=== PATIENT | female | born 1960 | race Caucasian/White ===

== ENCOUNTER → 2019-06-10 08:49 | Outpatient (BNVA) | payer MEDICARE, MEDICAID, SELFPAY | PROVIDERS: Family Provider Family Medicine; PCP Family Medicine; Visit Provider Psychiatry & Neurology Psychiatry | DX: F33.42 Major depressive disorder, recurrent, in full remission (principal); F90.0 Attention-deficit hyperactivity disorder, predominantly inattentive type | CPT/HCPCS: 99213 ==

== ENCOUNTER → 2019-09-09 07:29 | Outpatient (BNVA) | payer MEDICARE, MEDICAID, SELFPAY | PROVIDERS: Family Provider Family Medicine; PCP Family Medicine; Visit Provider Psychiatry & Neurology Psychiatry | DX: F90.0 Attention-deficit hyperactivity disorder, predominantly inattentive type (principal); F33.42 Major depressive disorder, recurrent, in full remission | CPT/HCPCS: 99212 ==

== ENCOUNTER → 2019-09-15 08:31 | Outpatient (BNVA) | payer MEDICARE, MEDICAID, SELFPAY | PROVIDERS: Family Provider Family Medicine; PCP Family Medicine; Visit Provider Social Worker | DX: F90.0 Attention-deficit hyperactivity disorder, predominantly inattentive type (principal); F33.42 Major depressive disorder, recurrent, in full remission | CPT/HCPCS: 90834 ==

== ENCOUNTER → 2019-10-06 08:07 | Outpatient (BNVA) | payer MEDICARE, MEDICAID, SELFPAY | PROVIDERS: Family Provider Family Medicine; PCP Family Medicine; Visit Provider Social Worker | DX: F90.0 Attention-deficit hyperactivity disorder, predominantly inattentive type (principal); F33.42 Major depressive disorder, recurrent, in full remission | CPT/HCPCS: 90834 ==

== ENCOUNTER → 2019-10-07 10:47 | Outpatient (BNVA) | payer MEDICARE, MEDICAID, SELFPAY | PROVIDERS: Family Provider Family Medicine; PCP Family Medicine; Visit Provider Psychiatry & Neurology Psychiatry | DX: F33.42 Major depressive disorder, recurrent, in full remission (principal); F90.0 Attention-deficit hyperactivity disorder, predominantly inattentive type; F33.41 Major depressive disorder, recurrent, in partial remission | CPT/HCPCS: 99213 ==

== ENCOUNTER → 2019-10-20 07:52 | Outpatient (BNVA) | payer MEDICARE, MEDICAID, SELFPAY | PROVIDERS: Family Provider Family Medicine; PCP Family Medicine; Visit Provider Social Worker | DX: F33.42 Major depressive disorder, recurrent, in full remission (principal); F90.0 Attention-deficit hyperactivity disorder, predominantly inattentive type | CPT/HCPCS: 90832 ==

== ENCOUNTER → 2019-12-05 07:26 | Outpatient (BNVA) | payer MEDICARE, MEDICAID, SELFPAY | PROVIDERS: Family Provider Family Medicine; PCP Family Medicine; Visit Provider Psychiatry & Neurology Psychiatry | DX: F33.42 Major depressive disorder, recurrent, in full remission (principal); F90.0 Attention-deficit hyperactivity disorder, predominantly inattentive type | CPT/HCPCS: 99213 ==

== ENCOUNTER → 2019-12-25 08:31 | Outpatient (BNVA) | payer MEDICARE, MEDICAID, SELFPAY | PROVIDERS: Family Provider Family Medicine; PCP Family Medicine; Visit Provider Family Medicine | DX: I10 Essential (primary) hypertension (principal); E03.9 Hypothyroidism, unspecified; Z12.31 Encounter for screening mammogram for malignant neoplasm of breast; M19.041 Primary osteoarthritis, right hand; Z68.27 Body mass index [BMI] 27.0-27.9, adult | CPT/HCPCS: 80053; 80061; 84443; 85025; 87086 ==

== ENCOUNTER 2020-02-10 13:28 | Outpatient (CLI) | payer MEDICARE, MEDICAID, SELFPAY ==
--- NOTE | 2020-02-10 14:00 | MM_ITS ---
WS: [id number] BILATERAL DIGITAL SCREENING MAMMOGRAPHY WITH CAD CLINICAL INFORMATION: screening mammogram - not due until sept HISTORY: Screening mammogram. No current complaints. COMPARISON: TECHNIQUE: Bilateral CC and MLO views. FINDINGS: Scattered fibroglandular densities bilaterally. No suspicious focal mass, asymmetry, calcifications, or architectural distortion. No evidence of malignancy. A few tiny punctate calcifications. MM/[id number] IMPRESSION: BI-RADS: 2-Benign FOLLOW UP: 1 Year Follow-up Recommend return to annual screening mammography.
== END 2020-02-10 13:29 | disposition home or self-care (01) ==
LOC: RADSHAW 13:32
PROVIDERS: PCP Family Medicine; Visit Provider Family Medicine
DX: Z12.31 Encounter for screening mammogram for malignant neoplasm of breast (principal)
CPT/HCPCS: 77067

== ENCOUNTER → 2020-02-20 07:25 | Outpatient (BNVA) | payer MEDICARE, MEDICAID, SELFPAY | PROVIDERS: PCP Family Medicine; Visit Provider Psychiatry & Neurology Psychiatry | DX: F33.42 Major depressive disorder, recurrent, in full remission (principal); F90.0 Attention-deficit hyperactivity disorder, predominantly inattentive type | CPT/HCPCS: 99213 ==

== ENCOUNTER → 2020-03-05 07:33 | Outpatient (BNVA) | payer MEDICARE, MEDICAID, SELFPAY | PROVIDERS: PCP Family Medicine; Visit Provider Psychiatry & Neurology Psychiatry | DX: F90.0 Attention-deficit hyperactivity disorder, predominantly inattentive type (principal); F32.4 Major depressive disorder, single episode, in partial remission | CPT/HCPCS: 99214 ==

== ENCOUNTER → 2020-04-06 07:33 | Outpatient (BNVA) | payer MEDICARE, MEDICAID, SELFPAY | PROVIDERS: PCP Family Medicine; Visit Provider Psychiatry & Neurology Psychiatry | DX: F33.42 Major depressive disorder, recurrent, in full remission (principal); F90.0 Attention-deficit hyperactivity disorder, predominantly inattentive type | CPT/HCPCS: 99213 ==

== ENCOUNTER 2020-04-16 14:48 | Outpatient (CLI) | payer MEDICARE, MEDICAID, SELFPAY ==
--- NOTE | 2020-04-16 15:04 | XR_ITS ---
WS: [id number] PROCEDURE: XR chest 2V* [id number] CLINICAL INFORMATION: ALLERGIC RHINITIS DUE TO POLLEN COMPARISON: FINDINGS: Heart: Normal cardiac silhouette. Lungs: Mild chronic emphysematous changes. No acute pulmonary infiltrates. No focal pneumonia or pleu ral fluid. Bones: Mild thoracic curve convex right. Cholecystectomy clips. XR/XR chest 2V* [id number] IMPRESSION: 1. Mild chronic emphysematous changes. No acute pulmonary infiltrates. 2. No acute chest findings.
== END 2020-04-16 14:49 | disposition home or self-care (01) ==
PROVIDERS: PCP Family Medicine; Visit Provider Specialist
DX: J30.1 Allergic rhinitis due to pollen (principal)
CPT/HCPCS: 71046

== ENCOUNTER → 2020-06-01 07:26 | Outpatient (BNVA) | payer MEDICARE, MEDICAID, SELFPAY | PROVIDERS: PCP Family Medicine; Visit Provider Psychiatry & Neurology Psychiatry | DX: F33.42 Major depressive disorder, recurrent, in full remission (principal); F90.0 Attention-deficit hyperactivity disorder, predominantly inattentive type | CPT/HCPCS: 99213 ==

== ENCOUNTER → 2020-07-06 10:38 | Outpatient (BNVA) | payer MEDICARE, MEDICAID, SELFPAY | PROVIDERS: PCP Family Medicine; Visit Provider Family Medicine | DX: E03.9 Hypothyroidism, unspecified (principal) | CPT/HCPCS: 84443 ==

== ENCOUNTER → 2020-07-27 07:27 | Outpatient (BNVA) | payer MEDICARE, MEDICAID, SELFPAY | PROVIDERS: PCP Family Medicine; Visit Provider Psychiatry & Neurology Psychiatry | DX: F33.42 Major depressive disorder, recurrent, in full remission (principal); F90.0 Attention-deficit hyperactivity disorder, predominantly inattentive type | CPT/HCPCS: 99214 ==

== ENCOUNTER → 2020-09-21 07:56 | Outpatient (BNVA) | payer MEDICARE, MEDICAID, SELFPAY | PROVIDERS: PCP Family Medicine; Visit Provider Psychiatry & Neurology Psychiatry | DX: F33.42 Major depressive disorder, recurrent, in full remission (principal); F90.0 Attention-deficit hyperactivity disorder, predominantly inattentive type | CPT/HCPCS: 99214 ==

== ENCOUNTER → 2020-11-23 08:41 | Outpatient (BNVA) | payer MEDICARE, MEDICAID, SELFPAY | PROVIDERS: PCP Family Medicine; Visit Provider Psychiatry & Neurology Psychiatry | DX: F33.42 Major depressive disorder, recurrent, in full remission (principal); F90.0 Attention-deficit hyperactivity disorder, predominantly inattentive type | CPT/HCPCS: 99214 ==

== ENCOUNTER → 2020-12-08 08:22 | Outpatient (BNVA) | payer MEDICARE, MEDICAID, SELFPAY | PROVIDERS: PCP Family Medicine; Referring Provider Family Medicine; Visit Provider Specialist | DX: M67.442 Ganglion, left hand (principal) | CPT/HCPCS: 73130 ==

== ENCOUNTER 2020-12-10 13:22 | Outpatient (CLI) | payer MEDICARE, MEDICAID, SELFPAY ==
--- NOTE | 2020-12-10 13:45 | MR_ITS ---
WS: [id number] MRI LEFT HAND without CONTRAST. COMPARISON: None Multiplanar, multisequence imaging is performed without contrast. Comparison: 12/09/2019. Ovoid soft tissue mass along the dorsal surface of the hand at the level of the proximal metacarpals. Mass is predominantly centered over the proximal third metacarpal and follows fluid signal on all se quences. This nodule measures 8 x 3 mm. Very closely associated with the extensor indices tendon. No marrow edema within the bone. No soft tissue or muscle atrophy identified. Small subchondral cyst in the proximal fourth metacarpal. MR/MR hand LT wo con* [id number] IMPRESSION: 1. Soft tissue nodule follows fluid on all sequences measures 8 x 3 mm on the dorsal surface of the hand at the level of the proximal third metacarpal. Proba michelle representing a ganglion associated with the extensor indices tendon. 2. No additional masses.
== END 2020-12-10 13:23 | disposition home or self-care (01) ==
LOC: RADSHAW 13:29
PROVIDERS: PCP Family Medicine; Visit Provider Specialist
DX: R22.32 Localized swelling, mass and lump, left upper limb (principal)
CPT/HCPCS: 73218

== ENCOUNTER → 2020-12-27 10:57 | Outpatient (BNVA) | payer MEDICARE, MEDICAID, SELFPAY | PROVIDERS: PCP Family Medicine; Visit Provider Specialist | DX: Z01.812 Encounter for preprocedural laboratory examination (principal); Z20.822 Contact with and (suspected) exposure to COVID-19 | CPT/HCPCS: 87635 ==

== ENCOUNTER 2020-12-31 05:46 | Day surgery (SDC) | payer MEDICARE, MEDICAID, SELFPAY ==
[2020-12-30 10:12] VITALS: BMI 26.2
--- NOTE | 2020-12-30 10:43 | ANES.PREANE2 ---
Pre-Anesthetic Assessment Pre-Anesthetic Assessment: Height/Weight: Height 1.6 m Weight 67.132 kg Preop Diagnosis: Ganglion cyst of tendon sheath left hand Proposed Procedure: Operation Date: 12/31/20 07:00 Proposed Procedures p Excision Of Ganglion Cyst left hand 2511(Left) - Evelin Galicia MD Was Beta Venita taken within 24 hours: N/A Was Clonidine taken within 24 hours: N/A Social: Social History: No alcohol and No tobacco Exam: Pre-Anes Outpt Exam: alert, oriented x 3, clear to auscultation bilaterally and regular rate & rhythm Airway: Submandibular: WNL Cervical ROM: WNL MP: 2 Dentition: False Pulmonary: Pulmonary: Asthma CV/HEM: CV/HEM: HTN Metabolic: Metabolic: Thyroid Neuropsych: Neuropsych: Anxiety and Depression Anesthetic Plan: ASA status: 2 Anesthesia: MAC and Regional (specify below) (Garrett davila) Risk of > 500 ml blood loss (7ml/kg in children): No PFSH Anesthesia PFSH: Medical History Attention-deficit hyperactivity disorder, predominantly inattentive type Enrolled in chronic care management Essential hypertension GERD (gastroesophageal reflux disease) Hypothyroid Surgical History H/O: hysterectomy History of cholecystectomy History of nasal surgery Family History Other Hypertension Psychiatric illness Social History Alcohol intake: never Data Anesthesia CBC & Chem 7: 12/30/20 10:25 12/30/20 10:25 Cardiac Studies: No Data to Display
[2020-12-30 10:56] LABS: Basophils # 0.1 10^3/uL (0.0-0.1); Basophils % 1.2 %; Eosinophils # 2.1 10^3/uL (0.0-0.8); Eosinophils % 22.4 %; Hematocrit 42.8 % (37.0-47.0); Hemoglobin 13.7 g/dL (11.5-15.3); Lymphocytes # 2.5 10^3/uL (0.8-4.8); Lymphocytes % 27.4 %; Mean Corpuscular Hemoglobin 28.4 pg (28.0-34.0); Mean Corpuscular Volume 88.8 fl (81-99); Mean Platelet Volume 11.5 fL (7.4-10.4); Monocytes # 0.6 10^3/uL (0.2-0.9); Monocytes % 6.9 %; Neutrophils # 3.83 10^3/uL (1.8-7.7); Neutrophils % 41.6 %; Nucleated Red Blood Cells % 0 %; Platelet Count 253 10^3/cmm (130-400); Red Blood Count 4.82 10^6/uL (4.1-5.3); Red Cell Distribution Width 13.4 % (12.1-15.1); White Blood Count 9.2 10^3/uL (4.0-10.0)
[2020-12-30 11:18] LABS: Blood Urea Nitrogen 8 mg/dL (6-20); Calcium 9.1 mg/dL (8.5-10.5); Carbon Dioxide 28 mmol/L (22-29); Chloride 101 mmol/L (98-107); Glomerular Filtration Rate 126.7 mL/min (90-130); Glucose 95 mg/dL (65-115); Osmolality Calculated 282 mOsm/kg (285-295); Sodium 137 mmol/L (136-145)
[2020-12-30 11:19] LABS: Anion Gap 12.1 (5-19); Potassium 4.1 mmol/L (3.5-5.1)
[2020-12-31] VITALS (7 sets, daily range): BP systolic 138–165; BP diastolic 85–98; PULSE 71–96; RESP 13–19; TEMP 36.2–36.8; O2SAT 95–99
[2020-12-31] MEDS: acetaminophen 1,000 MG/100 ML PIGGYBACK 400 MG IV (06:29)
[2020-12-31] MEDS: sodium chloride 0.9% 1,000 ML 30 ML IV (06:30)
[2020-12-31] MEDS: vancomycin 1,000 MG in sodium chloride 0.9% 250 ML 250 MG IV (06:37)
--- NOTE | 2020-12-31 06:50 | ANES.PAUD2 ---
Pre-Anesthetic Update Pre-Anesthetic Assessment: Date of Surgery/Procedure: 12/31/20 Preop Diagnosis: Ganglion cyst of tendon sheath left hand Proposed Procedure: Operation Date: 12/31/20 07:00 Proposed Procedures p Excision Of Ganglion Cyst left hand 2511(Left) - Evelin Galicia MD Any changes to Pre-Anesthetic Assessment?: No Last Intake: Intake Last Liquid Date 12/30/20 Last Liquid Time 21:00 Last Solid Date 12/30/20 Last Solid Time 21:00 Labs Last 48hrs: Laboratory Results - last 48 hr 12/30/20 12/30/20 10:25 10:25 WBC 9.2 RBC 4.82 Hgb 13.7 Hct 42.8 MCV 88.8 MCH 28.4 MCHC 32.0 RDW 13.4 Plt Count 253 MPV 11.5 H Neut % (Auto) 41.6 Lymph % (Auto) 27.4 [place] % (Auto) 6.9 Eos % (Auto) 22.4 Baso % (Auto) 1.2 Neut # (Auto) 3.83 Lymph # (Auto) 2.5 [place] # (Auto) 0.6 Eos # (Auto) 2.1 H Baso # (Auto) 0.1 Nucleated RBC % (a uto) 0 Nucleated RBCs # 0.0 Sodium 137 Potassium 4.1 Chloride 101 Carbon Dioxide 28 Anion Gap 12.1 BUN 8 Creatinine 0.5 GFR Calculation 126.7 Glucose 95 Calculated Osmolal ity 282 L Calcium 9.1 Vitals: Temperature 98.2 F 12/31/20 06:13 Temperature Source Temporal Artery S can 12/31/20 06:13 Pulse Rate 73 12/31/20 06:13 Respiratory Rate 18 12/31/20 06:13 Blood Pressure 157/89 12/31/20 06:13 Blood Pressure Amber n 111 12/31/20 06:13 Pulse Oximetry 98 12/31/20 06:13 Oxygen Delivery Me thod 12/31/20 06:13 Exam: Pre-Anes Outpt Exam: alert, oriented x 3, clear to auscultation bilaterally and regular rate & rhythm Cardiac Studies: No Data to Display
--- NOTE | 2020-12-31 06:54 | P.HPUD_ITS ---
Surgery/Procedure H&P Update DATE OF PROCEDURE: December 31, 2020 DATE H&P PERFORMED: 12/15/20 H&P UPDATE INFORMATION: I have reviewed H&P completed within last 30 days, I have examined patient prior to procedure, No changes to prior documentation and H&P is in [facility] EMR on date indicated PREOP DIAGNOSIS: Ganglion cyst of tendon sheath left hand PLANNED PROCEDURE: Operation Date: 12/31/20 07:00 Proposed Procedures p Excision Of Ganglion Cyst left hand 6432(Left) - Evelin Galicia MD Related Problem List Diagnoses (1) Ganglion cyst of tendon sheath of left hand:
--- NOTE | 2020-12-31 08:39 | PM.OP ---
Operative Report Date of procedure: December 31, 2020 Pre-op Diagnosis: Ganglion cyst of tendon sheath left hand Post-op Diagnosis: Ganglion cyst dorsum of left wrist Procedure Done: Excision ganglion cyst dorsum of left wrist Pathology: none sent Surgeon: Evelin Galicia Intermediate Teacher: None Anesthesia: General Estimated blood loss (mL): 2 Tourniquet time (min): 27 Tourniquet time: At 250 mmHg IV fluids (mL): 500 Urine output (mL): 0 Urine output: No Anderson Complications: None Findings: Ganglion cyst from the dorsum of the carpus without discrete cystic wall. Condition: stable Disposition: PACU (Then to same-day surgery for discharge to home) Brief History: This 60-year-old woman presented with complaints of a mass on the dorsum of her left wrist. She had an MRI evaluation preoperatively. The ganglion cyst was somewhat mobile, but it did not move with the extensor to the index finger. It did move with flexion and extension of all tendons, however. After evaluation and discussion in the office, the patient did wish to proceed with operative intervention for ganglion cyst removal. Risks and complications were discussed with her, and consents were signed. Procedure: The patient was brought to the operating theater. The patient had a Pearl block with MAC attempted, secondary to venous access issues, she was converted to a general anesthetic. The tourniquet was elevated to 250 mmHg for a total tourniquet time of 27 minutes. The patient was also given vancomycin 1 g preoperatively. The arm was then prepped and draped with DuraPrep in usual fashion with the arm draped free. A surgical pause was performed. At the time, the surgical pause, we confirmed the site and side of surgery. We also confirmed the patient's identity, appropriate and timely administration of preoperative antibiotics and preoperative surgical markings. Prior to surgical incision, the arm was exsanguinated and the tourniquet was elevated. The ganglion was palpated on the dorsum of the wrist, and a transverse incision was made centered over it. Dissection gently continued down through skin and subcutaneous tissues. Care was taken to avoid injury to the extensor tendons. Tenotomy scissors were used to enter the area of the ganglion cyst. Care was again taken to avoid injury to neurovascular structures as well as to the tendon. The ganglion cyst was noted to be an outpocketing from the underlying joint, and there was minimal cyst wall. The fluid which exuded from the area was indeed ganglion cyst fluid. The area was debrided with a rongeur. It was palpated to determine any further issues with ganglion cyst. 3-0 PDS suture was used to close the capsule over the area of the outpocketing for the ganglion cyst. Irrigation was accomplished prior to this closure. Further closure was accomplished with 3-0 Monocryl in the subcutaneous tissues and 4-0 Monocryl placed in a running subcuticular fashion. This was followed by injection of local anesthetic, placement of Dermabond, and Steri-Strips. Sterile dressing was then placed consisting of OpSite, fluffed fluffs, sterile soft roll, and an Magdiel wrap. The tourniquet was released after 27 minutes. There were no complications. There were no specimens. The procedure was well tolerated. Plan is the patient will be discharged home. Associated Problem List Diagnoses (1) Ganglion cyst of dorsum of left wrist:
--- NOTE | 2020-12-31 15:40 | ANE.PACU2 ---
Inpatient post-anesthesia follow up: Airway intact: Yes Vital signs: Temperature 98 F Pulse Rate 71 Respiratory Rate 16 Blood Pressure 154/97 Pulse Oximetry 98 Oxygen Delivery Me thod Room Air Oxygen Flow Rate 6 Fraction of Inspir ed Oxygen Hydration adequate: Yes Nausea and vomiting: No Pain level: 1 Mental status: Baseline
== END 2020-12-31 09:05 | disposition home or self-care (01) ==
PROVIDERS: PCP Family Medicine; Visit Provider Specialist
PROC: (CPT 25111; principal; 2020-12-31 07:00)
DX: M67.432 Ganglion, left wrist (principal); J45.909 Unspecified asthma, uncomplicated; I10 Essential (primary) hypertension; K21.9 Gastro-esophageal reflux disease without esophagitis; E03.9 Hypothyroidism, unspecified
CPT/HCPCS: 25111; 36415; 80048; 85025; 96365; J2704; J3010; J3370; J3490; J7030; J7050

== ENCOUNTER → 2021-01-11 10:06 | Outpatient (BNVA) | payer MEDICARE, MEDICAID, SELFPAY | PROVIDERS: PCP Family Medicine; Visit Provider Nurse Practitioner Family | DX: Z20.822 Contact with and (suspected) exposure to COVID-19 (principal); J06.9 Acute upper respiratory infection, unspecified | CPT/HCPCS: 87426 ==

== ENCOUNTER → 2021-01-19 10:29 | Outpatient (BNVA) | payer MEDICARE, MEDICAID, SELFPAY | PROVIDERS: PCP Family Medicine; Visit Provider Specialist | DX: M19.042 Primary osteoarthritis, left hand (principal); R22.32 Localized swelling, mass and lump, left upper limb | CPT/HCPCS: 73130 ==

== ENCOUNTER → 2021-02-03 14:42 | Outpatient (BNVA) | payer MEDICARE, MEDICAID, SELFPAY | PROVIDERS: PCP Family Medicine; Visit Provider Registered Nurse Neonatal Intensive Care | DX: M79.672 Pain in left foot (principal) | CPT/HCPCS: 73630 ==

== ENCOUNTER → 2021-02-28 16:51 | Outpatient (BNVA) | payer MEDICARE, MEDICAID, SELFPAY | PROVIDERS: PCP Family Medicine; Visit Provider Nurse Practitioner | DX: S69.90XA Unspecified injury of unspecified wrist, hand and finger(s), initial encounter (principal); X58.XXXA Exposure to other specified factors, initial encounter | CPT/HCPCS: 73110 ==

== ENCOUNTER → 2021-03-08 08:51 | Outpatient (BNVA) | payer MEDICARE, MEDICAID, SELFPAY | PROVIDERS: PCP Family Medicine; Visit Provider Psychiatry & Neurology Psychiatry | DX: F33.42 Major depressive disorder, recurrent, in full remission (principal); F90.0 Attention-deficit hyperactivity disorder, predominantly inattentive type | CPT/HCPCS: 99213 ==

== ENCOUNTER 2021-04-12 09:55 | Outpatient (CLI) | payer MEDICARE, MEDICAID, SELFPAY ==
--- NOTE | 2021-04-12 10:00 | MM_ITS ---
WS: [id number] Exam: [place] [id number] Date/Time of Exam: 04/12/2021 10:17 AM Reason For Exam: SCREENING VIEWS: MLO and CC views both breasts. Comparison made with prior exam of 11/27/2016, 11/30/2017, 01/10/2019 and 02/10/2020. Findings: There was no sign of mass, architectural distortion or suspicious calcification in either breast. Fa tty MM/[place] [id number] Impression: BI-RADS: 2-Benign FOLLOW-UP: 1 Year Follow-up This mammogram was also analyzed by the Computer Aided Detection System R2 Imag e Receptionist Clerk.
== END 2021-04-12 09:56 | disposition home or self-care (01) ==
LOC: RADSHAW 09:58
PROVIDERS: PCP Family Medicine; Visit Provider Family Medicine
DX: Z12.31 Encounter for screening mammogram for malignant neoplasm of breast (principal)
CPT/HCPCS: 77067

== ENCOUNTER → 2021-05-04 14:05 | Outpatient (BNVA) | payer MEDICARE, MEDICAID, SELFPAY | PROVIDERS: PCP Family Medicine; Visit Provider Nurse Practitioner Family | DX: Z20.822 Contact with and (suspected) exposure to COVID-19 (principal) | CPT/HCPCS: 87426; 87635 ==

== ENCOUNTER → 2021-05-20 08:20 | Outpatient (BNVA) | payer MEDICARE, MEDICAID, SELFPAY | PROVIDERS: PCP Family Medicine; Visit Provider Family Medicine | DX: I10 Essential (primary) hypertension (principal); E03.9 Hypothyroidism, unspecified; B37.0 Candidal stomatitis; J45.42 Moderate persistent asthma with status asthmaticus; M25.562 Pain in left knee | CPT/HCPCS: 80061; 84443 ==

== ENCOUNTER → 2021-05-31 09:40 | Outpatient (BNVA) | payer MEDICARE, MEDICAID, SELFPAY | PROVIDERS: PCP Family Medicine; Visit Provider Psychiatry & Neurology Psychiatry | DX: F33.42 Major depressive disorder, recurrent, in full remission (principal); F90.0 Attention-deficit hyperactivity disorder, predominantly inattentive type; E03.9 Hypothyroidism, unspecified | CPT/HCPCS: 99214 ==

== ENCOUNTER → 2021-07-13 14:53 | Outpatient (BNVA) | payer MEDICARE, MEDICAID, SELFPAY | PROVIDERS: PCP Family Medicine; Visit Provider Family Medicine | DX: E03.9 Hypothyroidism, unspecified (principal) | CPT/HCPCS: 84443 ==

== ENCOUNTER → 2021-08-23 10:02 | Outpatient (BNVA) | payer MEDICARE, MEDICAID, SELFPAY | PROVIDERS: PCP Family Medicine; Visit Provider Psychiatry & Neurology Psychiatry | DX: F33.42 Major depressive disorder, recurrent, in full remission (principal); F90.0 Attention-deficit hyperactivity disorder, predominantly inattentive type | CPT/HCPCS: 99214 ==

== ENCOUNTER 2021-10-04 14:47 | Emergency (ER) | payer MEDICARE, MEDICAID, SELFPAY ==
--- NOTE | 2021-10-04 15:08 | XR_ITS ---
WS: [id number] Right wrist, 3 views, 10/04/2021 Clinical Data: fall Comparison: None. Findings: There is a comminuted impacted dorsally displaced fracture of the distal right radius. There is a simple fracture of the right ulnar styloid. The carpal bones are intact. There is soft tis hattie swelling about the fracture. XR/XR wrist RT min 3V* [id number] Impression: Distal right radial fracture and right ulnar styloid fracture.
[2021-10-04 15:31] VITALS: BP 127/83; PULSE 93; RESP 18; TEMP 36.8; O2SAT 99; BMI 27.6
--- NOTE | 2021-10-04 15:41 | ED_ITS ---
Documented by User: GAGAN Vieira 10/04/21 16:11 HPI - Extremity Injury (Upper) General: Chief Complaint: Extremity Injury, Upper Stated Complaint: Left wrist injury, Fell Time Seen by Provider: 10/04/21 15:37 Source: patient Mode of arrival: ambulatory Limitations: no limitations History of Present Illness: Patient is a nice 61-year-old female presents to ED today for evaluation of a right wrist injury that she sustained just prior to arrival after she was walking in a parking lot and stepped in a pothole. She has no other injuries or complaints at this time. complaint: injury to: right and wrist Onset (ago): hour(s) Other injuries: none Place: outdoors Severity: severe Relieving factors: immobilization Exacerbating factors: movement of extremity Context: fall Associated symptoms: Reports no associated symptoms; Denies neck pain Review of Systems Musc: Reports: joint pain (R wrist) and joint swelling (R wrist); Denies: neck pain, back pain, extremity pain or extremity swelling Neuro: Denies: numbness in extremities or sensory changes PFSH ED PFSH: Medical History Attention-deficit hyperactivity disorder, predominantly inattentive type Enrolled in chronic care management Essential hypertension GERD (gastroesophageal reflux disease) Hypothyroid Psychiatric care Surgical History H/O: hysterectomy History of cholecystectomy History of nasal surgery Family History Other Hypertension Psychiatric illness Social History Smoking and tobacco status: former smoker Alcohol intake: never Physical Exam Const: COMMON NORMALS: no acute distress, patient oriented x3, no limitations and alert Neck/C-Spine: CERVICAL SPINE: No pain with cervical ROM and No Cervical spine tenderness Back/Pelvis: COMMON NORMALS: thoracic and lumbar spine normal to inspection, no thoracic nor lumbar tenderness and thoraco-lumbar ROM normal Extremity: COMMON NORMALS: capillary refill normal GENERAL: Yes normal exam except as noted RIGHT UPPER EXTREMITY: Yes wrist (TTP/swelling/deformity distal R wrist consistent with fracture) Right wrist: Yes neurovascular exam (normal) Neuro: COMMON NORMALS: patient oriented x3, moves all extremities, no focal motor deficits and no sensory deficits noted SENSORIUM/ORIENTATION: Yes alert Skin: TRAUMA: no lacerations or abrasions Course Vital Signs: Vital signs: Vital Signs Temperature 98.2 F 10/04/21 15:31 Pulse Rate 93 10/04/21 15:31 Respiratory Rate 18 10/04/21 15:31 Blood Pressure 127/83 10/04/21 15:31 Pulse Oximetry 99 10/04/21 15:31 MDM - Extremity Injury (Upper) Medical Decision Making Personal interpretation of right wrist XR shows an impacted comminuted distal r ight radial fracture with a small ulnar styloid fracture. NV intact. Patient will be placed in a splint/sling and will have her follow-up with orthopedics. She is requesting only Tylenol #3 for discomfort stating she does not like stronger pain medications. XRs reviewed with Dr. Valdez who agrees with plan for patient. Lab Data Radiology Impressions Wrist X-Ray 10/04/21 15:08 Impression: Distal right radial fracture and right ulnar styloid fracture. Discharge Plan Discharge Patient Disposition: Home Clinical Impression: Closed fracture of distal end of right radius Qualifiers: Encounter type: initial encounter Fracture morphology: other fracture Qualified Code(s): S52.591A - Other fractures of lower end of right radius, initial encounter for closed fracture Fracture of right ulnar styloid Qualifiers: Encounter type: initial encounter Fracture type: closed Fracture alignment: nondisplaced Qualified Code(s): S52.614A - Nondisplaced fracture of right ulna styloid process, initial encounter for closed fracture Condition: Stable Prescriptions: New acetaminophen-codeine 300-30 mg tablet 1 tab PO Q4H PRN (Reason: pain) Qty: 20 0RF No Action multivitamin Tablet 1 tab PO QAM 0RF Dupixent Syringe 300 mg/2 mL syringe 300 mg SUBCUT .every 2 weeks 0RF Xhance 93 mcg/actuation aerosol breath activated 1 spray intranasal BID 0RF Rx Instructions: into each nostril albuterol sulfate 2.5 mg /3 mL (0.083 %) solution for nebulization 2.5 mg inhalation QID PRN (Reason: shortness of breath or wheezing) Qty: 75 1RF lisinopril 10 mg tablet 10 mg PO DAILY 90 Days Qty: 90 1RF dextromethorphan HBr 5 mg/5 mL syrup 5 mg PO Q6H PRN (Reason: cough) Qty: 354 0RF clonazepam [Klonopin] 0.5 mg tablet 0.25 mg PO BID Qty: 60 5RF atomoxetine 40 mg capsule 40 mg PO BID Qty: 60 11RF sertraline [Zoloft] 50 mg tablet 50 mg PO DAILY Qty: 30 11RF zolpidem [Ambien] 10 mg tablet 10 mg PO BEDTIME Qty: 30 5RF levocetirizine 5 mg tablet 5 mg PO DAILY 0RF albuterol sulfate [Ventolin HFA] 90 mcg/actuation HFA aerosol inhaler 2 puff INHALATION Q6H PRN (Reason: shortness of breath or wheezing) Qty: 18 2RF ezetimibe [Zetia] 10 mg tablet 10 mg PO DAILY 90 Days Qty: 90 1RF Dexilant 60 mg capsule,biphase delayed releas See Rx Instructions .ROUTE .COMPLEX Qty: 90 0RF Dose Instruction: TAKE 1 CAPSULE BY MOUTH EVERY DAY Rx Instructions: TAKE 1 CAPSULE BY MOUTH EVERY DAY Symbicort 160-4.5 mcg/actuation HFA aerosol inhaler 2 puff INHALATION Q12H Qty: 10.2 2RF levothyroxine 100 mcg tablet 100 mcg PO DAILY 60 Days Qty: 60 0RF Rx Instructions: needs a lab before refills gabapentin 300 mg capsule 300 mg PO DAILY Qty: 30 3RF levothyroxine 88 mcg tablet See Rx Instructions .ROUTE .COMPLEX Qty: 30 2RF Dose Instruction: TAKE 1 TABLET BY MOUTH 4 DAYS PER WEEK Rx Instructions: TAKE 1 TABLET BY MOUTH 4 DAYS PER WEEK Discharge Orders: Discharge ED (Routine); Ordered 10/04/21 Ordered By: Ivonne Michaels Referrals: Lily Medina DO [Primary Care Provider] - Patient Instructions: Wrist Fracture in Adults (ED), ORIF of a Wrist Fracture (DC) Activity Restrictions/Additional Instructions: As we discussed case management should contact you shortly to set you up with your follow-up orthopedic appointment. You need to stay in your splint until this appointment. Return to the emergency department for numbness, tingling, loss of sensation, or coolness/pallor to the extremity/hand. Coding Level of Care Code ED Sap Portal Architect for Chg Fwd Exam Detailed Documented by User: Josse Valdez DO 10/05/21 06:52 HPI - Extremity Injury (Upper) General: Chief Complaint: Extremity Injury, Upper Stated Complaint: Left wrist injury, Fell Time Seen by Provider: 10/04/21 15:37 PFSH ED PFSH: Medical History Attention-deficit hyperactivity disorder, predominantly inattentive type Enrolled in chronic care management Essential hypertension GERD (gastroesophageal reflux disease) Hypothyroid Psychiatric care Surgical History H/O: hysterectomy History of cholecystectomy History of nasal surgery Family History Other Hypertension Psychiatric illness Social History Smoking and tobacco status: former smoker Alcohol intake: never Course Vital Signs: Vital signs: Vital Signs Temperature 98.2 F 10/04/21 15:31 Pulse Rate 93 10/04/21 15:31 Respiratory Rate 18 10/04/21 15:31 Blood Pressure 127/83 10/04/21 15:31 Pulse Oximetry 99 10/04/21 15:31 MDM - Extremity Injury (Upper) Medical Decision Making Personal interpretation of right wrist XR shows an impacted comminuted distal right radial fracture with a small ulnar styloid fracture. NV intact. Patient will be placed in a splint/sling and will have her follow-up with orthopedics. She is requesting only Tylenol #3 for discomfort stating she does not like stronger pain medications. XRs reviewed with Dr. Valdez who agrees with plan for patient. Chart reviewed and patient discussed with midlevel. Agree with assessment and plan. Lab Data Radiology Impressions Wrist X-Ray 10/04/21 15:08 Impression: Distal right radial fracture and right ulnar styloid fracture. Discharge Plan Discharge Patient Disposition: Home Clinical Impression: Closed fracture of distal end of right radius Qualifiers: Encounter type: initial encounter Fracture morphology: other fracture Qualified Code(s): S52.591A - Other fractures of lower end of right radius, initial encounter for closed fracture Fracture of right ulnar styloid Qualifiers: Encounter type: initial encounter Fracture type: closed Fracture alignment: nondisplaced Qualified Code(s): S52.614A - Nondisplaced fracture of right ulna styloid process, initial encounter for closed fracture Condition: Stable Prescriptions: New acetaminophen-codeine 300-30 mg tablet 1 tab PO Q4H PRN (Reason: pain) Qty: 20 0RF No Action multivitamin Tablet 1 tab PO QAM 0RF Dupixent Syringe 300 mg/2 mL syringe 300 mg SUBCUT .every 2 weeks 0RF Xhance 93 mcg/actuation aerosol breath activated 1 spray intranasal BID 0RF Rx Instructions: into each nostril albuterol sulfate 2.5 mg /3 mL (0.083 %) solution for nebulization 2.5 mg inhalation QID PRN (Reason: shortness of breath or wheezing) Qty: 75 1RF lisinopril 10 mg tablet 10 mg PO DAILY 90 Days Qty: 90 1RF dextromethorphan HBr 5 mg/5 mL syrup 5 mg PO Q6H PRN (Reason: cough) Qty: 354 0RF clonazepam [Klonopin] 0.5 mg tablet 0.25 mg PO BID Qty: 60 5RF atomoxetine 40 mg capsule 40 mg PO BID Qty: 60 11RF sertraline [Zoloft] 50 mg tablet 50 mg PO DAILY Qty: 30 11RF zolpidem [Ambien] 10 mg tablet 10 mg PO BEDTIME Qty: 30 5RF levocetirizine 5 mg tablet 5 mg PO DAILY 0RF albuterol sulfate [Ventolin HFA] 90 mcg/actuation HFA aerosol inhaler 2 puff INHALATION Q6H PRN (Reason: shortness of breath or wheezing) Qty: 18 2RF ezetimibe [Zetia] 10 mg tablet 10 mg PO DAILY 90 Days Qty: 90 1RF Dexilant 60 mg capsule,biphase delayed releas See Rx Instructions .ROUTE .COMPLEX Qty: 90 0RF Dose Instruction: TAKE 1 CAPSULE BY MOUTH EVERY DAY Rx Instructions: TAKE 1 CAPSULE BY MOUTH EVERY DAY Symbicort 160-4.5 mcg/actuation HFA aerosol inhaler 2 puff INHALATION Q12H Qty: 10.2 2RF levothyroxine 100 mcg tablet 100 mcg PO DAILY 60 Days Qty: 60 0RF Rx Instructions: needs a lab before refills gabapentin 300 mg capsule 300 mg PO DAILY Qty: 30 3RF levothyroxine 88 mcg tablet See Rx Instructions .ROUTE .COMPLEX Qty: 30 2RF Dose Instruction: TAKE 1 TABLET BY MOUTH 4 DAYS PER WEEK Rx Instructions: TAKE 1 TABLET BY MOUTH 4 DAYS PER WEEK Discharge Orders: Discharge ED (Routine); Ordered 10/04/21 Ordered By: Ivonne Michaels Referrals: Lily Medina DO [Primary Care Provider] - Patient Instructions: Wrist Fracture in Adults (ED), ORIF of a Wrist Fracture (DC) Activity Restrictions/Additional Instructions: As we discussed case management should contact you shortly to set you up with your follow-up orthopedic appointment. You need to stay in your splint until this appointment. Return to the emergency department for numbness, tingling, loss of sensation, or coolness/pallor to the extremity/hand. Coding Level of Care Code ED Sap Portal Architect for [place] Fwd Exam Detailed
[2021-10-04] MEDS: acetaminophen-codeine 300-30mg Tablet 1 TAB PO (16:26)
--- NOTE | 2021-10-05 14:19 | DCPLANNER ---
Addendum entered by Darcy Ordonez 10/14/21 06:59: Patient had a follow up appointment scheduled for 10.11.21 at ortho - patient did attend appointment. Original Note: assistant program manager had message to schedule a follow up appointment for patient with ortho. assistant program manager had message to schedule a follow up appointment for patient with ortho. Patients information will be printed and reviewed. Clinic will call patient with appointment information.
== END 2021-10-04 16:46 | disposition home or self-care (01) ==
PROVIDERS: Emergency Provider Physician Assistant; PCP Family Medicine
DX: S52.591A Other fractures of lower end of right radius, initial encounter for closed fracture (principal); S52.614A Nondisplaced fracture of right ulna styloid process, initial encounter for closed fracture; W17.2XXA Fall into hole, initial encounter
CPT/HCPCS: 73110; 99283

== ENCOUNTER 2021-10-05 23:31 | Emergency (ER) | payer MEDICARE, MEDICAID, SELFPAY ==
[2021-10-05 23:43] VITALS: BP 110/71; PULSE 87; RESP 18; TEMP 36.8; O2SAT 93; BMI 27.6
--- NOTE | 2021-10-05 23:46 | ED_ITS ---
HPI - Extremity Injury (Upper) General: Chief Complaint: Extremity Injury, Upper Stated Complaint: Arm cast too tight Time Seen by Provider: 10/05/21 23:46 History of Present Illness: 61-year-old female comes in today for complaints of splint is too tight. Patient has sugar-tong splint placed for a wrist fracture yesterday. Patient reports tightness at the elbow. Review of Systems General: Reports: 10 or more systems reviewed and unremarkable except in HPI and below Card: Denies: chest pain Resp: Denies: dyspnea Musc: Reports: extremity pain PFSH ED PFSH: Medical History Attention-deficit hyperactivity disorder, predominantly inattentive type Enrolled in chronic care management Essential hypertension GERD (gastroesophageal reflux disease) Hypothyroid Psychiatric care Surgical History H/O: hysterectomy History of cholecystectomy History of nasal surgery Family History Other Hypertension Psychiatric illness Social History Smoking and tobacco status: former smoker Alcohol intake: never Physical Exam Const: COMMON NORMALS: alert HENMT: COMMON NORMALS: atraumatic HEAD & SCALP: atraumatic Neck/C-Spine: COMMON NORMALS: full ROM Resp: COMMON NORMALS: normal respiratory effort Cardio: COMMON NORMALS: regular rate RATE: regular rate Extremity: RIGHT UPPER EXTREMITY: Yes lower arm (Mild swelling is noted to the wrist and hand. Normal neurovascular) Right lower arm: Yes inspection, Yes palpation and Yes neurovascular exam Neuro: SENSORIUM/ORIENTATION: Yes alert Skin: COMMON NORMALS: no rashes or lesions noted GENERAL SKIN EXAM: no rashes or lesions noted Course Vital Signs: Vital signs: Vital Signs Temperature 98.3 F 10/05/21 23:43 Pulse Rate 72 10/06/21 00:30 Respiratory Rate 18 10/06/21 00:30 Blood Pressure 119/72 10/06/21 00:30 Pulse Oximetry 96 10/06/21 00:30 MDM - Extremity Injury (Upper) Medical Decision Making She came in due to her splint being too tight. On exam there was pressure being placed on the elbow due to the Ortho-Glass forming wrong. Removal of the splint noted no ulcers or skin damage. Vital signs are normal. Differential diagnosis includes neurovascular compromise, skin ulcer, fracture of the wrist. Splint was replaced patient reported good comfort. Recommend follow-up with orthopedist as scheduled. Patient reported understanding agreed to plan Discharge Plan Discharge Patient Disposition: Home Clinical Impression: Closed fracture of distal end of right radius Qualifiers: Encounter type: subsequent encounter Fracture morphology: Colles' Fracture healing: with routine healing Qualified Code(s): S52.531D - Colles' fracture of right radius, subsequent encounter for closed fracture with routine healing Condition: Stable Prescriptions: No Action multivitamin Tablet 1 tab PO QAM 0RF Dupixent Syringe 300 mg/2 mL syringe 300 mg SUBCUT .every 2 weeks 0RF Xhance 93 mcg/actuation aerosol breath activated 1 spray intranasal BID 0RF Rx Instructions: into each nostril albuterol sulfate 2.5 mg /3 mL (0.083 %) solution for nebulization 2.5 mg inhalation QID PRN (Reason: shortness of breath or wheezing) Qty: 75 1RF lisinopril 10 mg tablet 10 mg PO DAILY 90 Days Qty: 90 1RF dextromethorphan HBr 5 mg/5 mL syrup 5 mg PO Q6H PRN (Reason: cough) Qty: 354 0RF clonazepam [Klonopin] 0.5 mg tablet 0.25 mg PO BID Qty: 60 5RF atomoxetine 40 mg capsule 40 mg PO BID Qty: 60 11RF sertraline [Zoloft] 50 mg tablet 50 mg PO DAILY Qty: 30 11RF zolpidem [Ambien] 10 mg tablet 10 mg PO BEDTIME Qty: 30 5RF levocetirizine 5 mg tablet 5 mg PO DAILY 0RF albuterol sulfate [Ventolin HFA] 90 mcg/actuation HFA aerosol inhaler 2 puff INHALATION Q6H PRN (Reason: shortness of breath or wheezing) Qty: 18 2RF ezetimibe [Zetia] 10 mg tablet 10 mg PO DAILY 90 Days Qty: 90 1RF Dexilant 60 mg capsule,biphase delayed releas See Rx Instructions .ROUTE .COMPLEX Qty: 90 0RF Dose Instruction: TAKE 1 CAPSULE BY MOUTH EVERY DAY Rx Instructions: TAKE 1 CAPSULE BY MOUTH EVERY DAY Symbicort 160-4.5 mcg/actuation HFA aerosol inhaler 2 puff INHALATION Q12H Qty: 10.2 2RF levothyroxine 100 mcg tablet 100 mcg PO DAILY 60 Days Qty: 60 0RF Rx Instructions: needs a lab before refills gabapentin 300 mg capsule 300 mg PO DAILY Qty: 30 3RF levothyroxine 88 mcg tablet See Rx Instructions .ROUTE .COMPLEX Qty: 30 2RF Dose Instruction: TAKE 1 TABLET BY MOUTH 4 DAYS PER WEEK Rx Instructions: TAKE 1 TABLET BY MOUTH 4 DAYS PER WEEK acetaminophen-codeine 300-30 mg tablet 1 tab PO Q4H PRN (Reason: pain) Qty: 20 0RF Discharge Orders: Discharge ED (Routine); Ordered 10/06/21 Ordered By: Troy Valdez Referrals: Lily Medina DO [Primary Care Provider] - Discharge Diet: Usual diet Discharge Activity: Increase activity as tolerated Patient Instructions: Splint Care (ED) Activity Restrictions/Additional Instructions: Keep splint clean and dry. Use sling for comfort. Follow-up with primary care for further instruction. Return to ER for new concerns. 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
[2021-10-06 00:30] VITALS: BP 119/72; PULSE 72; RESP 18; O2SAT 96
== END 2021-10-06 00:35 | disposition home or self-care (01) ==
PROVIDERS: Emergency Provider Nurse Practitioner Family; PCP Family Medicine
DX: S52.531A Colles' fracture of right radius, initial encounter for closed fracture (principal); X58.XXXA Exposure to other specified factors, initial encounter; M79.601 Pain in right arm
CPT/HCPCS: 99282

== ENCOUNTER → 2021-10-11 08:23 | Outpatient (BNVA) | payer MEDICARE, MEDICAID, SELFPAY | PROVIDERS: PCP Family Medicine; Referring Provider Physician Assistant; Visit Provider Physician Assistant | DX: S62.001A Unspecified fracture of navicular [scaphoid] bone of right wrist, initial encounter for closed fracture (principal); W18.39XA Other fall on same level, initial encounter; Y92.512 Supermarket, store or market as the place of occurrence of the external cause; S52.501A Unspecified fracture of the lower end of right radius, initial encounter for closed fracture | CPT/HCPCS: 73110; 99203; A4590 ==

== ENCOUNTER → 2021-11-29 09:09 | Outpatient (BNVA) | payer MEDICARE, MEDICAID, SELFPAY | PROVIDERS: PCP Family Medicine; Visit Provider Family Medicine | DX: I10 Essential (primary) hypertension (principal); E03.9 Hypothyroidism, unspecified | CPT/HCPCS: 80053; 80061; 84439; 84443; 85025 ==

== ENCOUNTER 2022-05-03 10:19 | Outpatient (CLI) | payer MEDICARE, MEDICAID, SELFPAY ==
--- NOTE | 2022-05-03 10:32 | MM_ITS ---
WS: [id number] Bilateral screening 3D tomosynthesis digital mammogram, 05/03/2022 Clinical Data: SCREENING Comparison: 04/12/2021, 02/10/2020, 01/10/2019, 11/30/2017, 11/27/2016, 11/23/2015, 11/20/2014, 10/24/2013, 08/06/2012, 05/26/2011, 03/02/2009, 11/19/2007, 09/17/2006. Findings: The breast parenchymal pattern shows fat replacement. No spiculated masses or clustered calcification s are seen. There are no secondary signs of carcinoma. MM/[place] [id number] Impression: 1. Negative bilateral mammogram unchanged. 2. Recommend annual screening mammograms. BIRADS: 1-Negative FOLLOW UP: 1 Year Follow-up The CAD cash checker was used.
== END 2022-05-03 10:20 | disposition home or self-care (01) ==
LOC: RAD 10:19
PROVIDERS: PCP Family Medicine; Visit Provider Family Medicine
DX: Z12.31 Encounter for screening mammogram for malignant neoplasm of breast (principal)
CPT/HCPCS: 77063; 77067

== ENCOUNTER → 2022-07-21 11:01 | Outpatient (BNVA) | payer MEDICARE, MEDICAID, OTHER, SELFPAY | PROVIDERS: PCP Family Medicine; Visit Provider Family Medicine | DX: J45.42 Moderate persistent asthma with status asthmaticus (principal) | CPT/HCPCS: 80198 ==

== ENCOUNTER → 2022-10-20 11:20 | Outpatient (BNVA) | payer MEDICARE, MEDICAID, SELFPAY | PROVIDERS: PCP Family Medicine; Visit Provider Family Medicine | DX: I10 Essential (primary) hypertension (principal); E03.9 Hypothyroidism, unspecified | CPT/HCPCS: 80053; 80061; 82043; 84443; 85025 ==

== ENCOUNTER 2022-12-11 20:43 | Emergency (ER) | payer MEDICARE, MEDICAID, SELFPAY ==
[2022-12-11 20:48] VITALS: BP 123/82; PULSE 95; RESP 16; TEMP 36.5; O2SAT 100; BMI 29.2
[2022-12-11 21:07] VITALS: BP 139/84; PULSE 100; RESP 18; O2SAT 99
--- NOTE | 2022-12-11 21:38 | XRR_ITS ---
PROCEDURE INFORMATION: Exam: XR Left Knee Exam date and time: 12/11/2022 9:44 PM Age: 62 years old Clinical indication: Injury or trauma; Fall; Blunt trauma; Knee; Left; Additional info: Fall, pain TECHNIQUE: Imaging protocol: Radiologic exam of the left knee. Views: 3 views. COMPARISON: No relevant prior studies available. FINDINGS: Bones/joints: Nondisplaced fracture through the lower body of the patella. Mild degenerative change at the left knee. Moderate suprapatellar left knee joint effusion. No dislocation. Bones are mildly osteopenic. Soft tissues: No soft tissue swelling. No radiopaque foreign body. XR/XR knee LT 3V* [id number] IMPRESSION: 1. Nondisplaced fracture through the lower body of the patella. 2. Moderate suprapatellar left knee joint effusion.
--- NOTE | 2022-12-11 21:39 | ED_ITS ---
HPI - Fall General: Chief Complaint: Fall Stated Complaint: fell Time Seen by Provider: 12/11/22 21:16 History of Present Illness: 62yo female presents with family for evaluation of left knee pain following a trip and fall that occurred at 1930 this evening. Patient reports she was vacuuming the cat tree when she accidentally tripped over the cord to the vacuum exhibit cleaner. She reports that she landed on her knee. She states that initially she was able to bear weight, but now has increased pain. Patient denies hitting her head, loss consciousness, neck pain, back pain, any other concerns at this time. Patient also denies use of blood thinners. Associated symptoms-after fall: Denies chest pain Review of Systems Const: Denies: fever(s), chills or body aches Card: Denies: chest pain Resp: Denies: dyspnea Musc: Reports: extremity pain (left knee) Ervin/Lymph: Denies: easy bruising PFSH ED PFSH: Medical History Allergic rhinitis due to allergen Attention-deficit hyperactivity disorder, predominantly inattentive type Enrolled in chronic care management Essential hypertension GERD (gastroesophageal reflux disease) Hypothyroid Psychiatric care Thrush, oral URI with cough and congestion Surgical History H/O: hysterectomy History of cholecystectomy History of nasal surgery Family History Other Hypertension Psychiatric illness Social History Smoking and tobacco status: former smoker Alcohol intake: never Substance/Drug Use: never Physical Exam Const: COMMON NORMALS: no acute distress, patient oriented x3, healthy appearing and alert GENERAL APPEARANCE: cooperative ORIENTATION/CONSCIOUSNESS: Yes awake HENMT: COMMON NORMALS: normocephalic and atraumatic HEAD & SCALP: normocephalic and atraumatic Eye: GENERAL EYE: appearance normal, both eyes and all related structures Neck/C-Spine: COMMON NORMALS: full ROM Chest: CHEST: Yes Symmetrical chest wall rise Resp: COMMON NORMALS: normal respiratory effort Cardio: COMMON NORMALS: regular rate RATE: regular rate Extremity: RIGHT LOWER EXTREMITY: Yes knee joint Right knee: Yes palpation and Yes ROM (decreased d/t pain), No foot & digits and No foot & digits Neuro: COMMON NORMALS: patient oriented x3 SENSORIUM/ORIENTATION: Yes alert Psych: COMMON NORMALS: cooperative Skin: COMMON NORMALS: no wounds Course Vital Signs: Vital signs: Vital Signs Temperature 97.7 F 12/11/22 20:48 Pulse Rate 90 12/11/22 23:26 Respiratory Rate 16 12/11/22 23:26 Blood Pressure 153/90 12/11/22 23:26 Pulse Oximetry 97 12/11/22 23:26 Oxygen Delivery Me thod Room Air 12/11/22 22:33 MDM - Fall Medical Decision Making 62yo female here with family for evaluation of left knee pain following a trip and fall that occurred at approximately 1930 this evening. Patient reports she was attempting to clean her cat tree and tripped over her vacuum exhibit cleaner cord. She states that she did land on her left leg. Patient states she was initially able to bear weight, but now has increased pain. She denies hitting her head, loss consciousness, neck pain, back pain, use of blood thinners. Patient is nontoxic in appearance. Vital signs are stable. Differential diagnoses include sprain, fracture, muscle strain. X-ray of the knee reveals a nondisplaced fracture through the lower body of the patella as well as a moderate suprapatellar left knee joint effusion. Discussed findings with patient and family. Patient is driving tonight, so unable to have pain medication while in the emergency department. A knee immobilizer was applied and crutches provided. Recommend rest, ice, elevation. Short course hydrocodone was sent to patient's pharmacy, sedation precautions provided. A referral was placed to orthopedics for follow-up of the patellar fracture. Recommend patient follow-up with orthopedics as soon as possible. Advised to return to the emergency department if any rapid worsening symptoms, further injury, and as needed. Differential Diagnosis Likely compression fracture (fracture) Lab Data I reviewed the patient's lab results. Radiology Impressions Knee X-Ray 12/11/22 21:38 IMPRESSION: 1. Nondisplaced fracture through the lower body of the patella. 2. Moderate suprapatellar left knee joint effusion. Discharge Plan Discharge Patient Disposition: Home Clinical Impression: Closed fracture of left patella, Effusion of left knee, Fall from slip, trip, or stumble Condition: Stable Prescriptions: New hydrocodone-acetaminophen 5-325 mg tablet 1 tab PO Q8H PRN (Reason: pain) Qty: 12 0RF Held acetaminophen-codeine 300-30 mg tablet 1 tab PO Q4H PRN (Reason: pain) Qty: 20 0RF Hold Instructions: Resume on 12/15/22. Do not take while taking [place] No Action multivitamin Tablet 1 tab PO QAM Dupixent Syringe 300 mg/2 mL syringe 300 mg SUBCUT .every 2 weeks clotrimazole 1 % cream 1 applic topical BID 14 Days Qty: 30 0RF benzonatate 200 mg capsule 200 mg PO BID PRN (Reason: cough) Qty: 20 0RF atomoxetine [Strattera] 100 mg capsule 100 mg PO QAM Qty: 30 11RF sertraline [Zoloft] 50 mg tablet 50 mg PO DAILY Qty: 30 11RF clonazepam [Klonopin] 0.5 mg tablet 0.25 mg PO BID Qty: 60 5RF zolpidem [Ambien] 10 mg tablet 10 mg PO BEDTIME Qty: 30 5RF albuterol sulfate [Ventolin HFA] 90 mcg/actuation HFA aerosol inhaler 2 puff INHALATION Q6H PRN (Reason: shortness of breath or wheezing) Qty: 18 2RF Symbicort 160-4.5 mcg/actuation HFA aerosol inhaler See Rx Instructions .ROUTE .COMPLEX Qty: 10.2 0RF Dose Instruction: INHALE 2 PUFFS BY MOUTH EVERY 12 HOURS Rx Instructions: INHALE 2 PUFFS BY MOUTH EVERY 12 HOURS levothyroxine 100 mcg tablet See Rx Instructions .ROUTE .COMPLEX Qty: 90 0RF Dose Instruction: TAKE 1 TABLET BY MOUTH EVERY DAY Rx Instructions: TAKE 1 TABLET BY MOUTH EVERY DAY diphenhydramine HCl [Banophen] 25 mg capsule See Rx Instructions .ROUTE .COMPLEX Qty: 30 5RF Dose Instruction: TAKE 1 CAPSULE BY MOUTH AT BEDTIME NEEDED FOR COUGH Rx Instructions: TAKE 1 CAPSULE BY MOUTH AT BEDTIME NEEDED FOR COUGH (DME) nebulizer mouthpiece and tubing See Rx Instructions .Route .MEDSUPPLY Qty: 1 0RF Rx Instructions: As directed ezetimibe 10 mg tablet See Rx Instructions .ROUTE .COMPLEX Qty: 90 1RF Dose Instruction: TAKE 1 TABLET BY MOUTH EVERY DAY Rx Instructions: TAKE 1 TABLET BY MOUTH EVERY DAY albuterol sulfate 2.5 mg /3 mL (0.083 %) solution for nebulization See Rx Instructions .ROUTE .COMPLEX Qty: 60 11RF Dose Instruction: USE 1 VIAL IN NEBULIZER 4 TIMES DAILY - as needed Rx Instructions: USE 1 VIAL IN NEBULIZER 4 TIMES DAILY - as needed gabapentin 300 mg capsule See Rx Instructions .ROUTE .COMPLEX Qty: 90 1RF Dose Instruction: TAKE 1 CAPSULE BY MOUTH EVERY DAY Rx Instructions: TAKE 1 CAPSULE BY MOUTH EVERY DAY fluticasone propionate 50 mcg/actuation spray,suspension See Rx Instructions .ROUTE .COMPLEX Qty: 48 0RF Dose Instruction: SPRAY 2 SPRAYS IN EACH NOSTRIL TWICE DAILY FOR ALLERGY SYMPTOMS Rx Instructions: SPRAY 2 SPRAYS IN EACH NOSTRIL TWICE DAILY FOR ALLERGY SYMPTOMS lisinopril 10 mg tablet See Rx Instructions .ROUTE .COMPLEX Qty: 90 1RF Dose Instruction: TAKE 1 TABLET BY MOUTH EVERY DAY FOR 90 DAYS Rx Instructions: TAKE 1 TABLET BY MOUTH EVERY DAY FOR 90 DAYS theophylline 300 mg tablet extended release 12 hr 300 mg PO Q12H Qty: 60 2RF dexlansoprazole 60 mg capsule,biphase delayed releas See Rx Instructions .ROUTE .COMPLEX Qty: 90 0RF Dose Instruction: TAKE 1 CAPSULE BY MOUTH EVERY DAY Rx Instructions: TAKE 1 CAPSULE BY MOUTH EVERY DAY Discharge Orders: Discharge ED (Routine); Ordered 12/11/22 Ordered By: Shade Lucas Referrals: Lily Medina DO [Primary Care Provider] - Discharge Diet: Usual diet Discharge Activity: Use walker/crutches as instructed Patient Instructions: Patellar Fracture (ED), Opioid Safety, Pain Management Activity Restrictions/Additional Instructions: A referral has been placed to orthopedics for your patella fracture. They should be calling you to schedule an appointment. Do not drive or operate heavy machinery while taking pain medications. 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
[2022-12-11 21:47] VITALS: BP 138/98; PULSE 91; RESP 22; O2SAT 95
[2022-12-11 22:11] VITALS: BP 133/98; PULSE 88; RESP 14; O2SAT 99
[2022-12-11 22:33] VITALS: BP 143/104; PULSE 100; RESP 20; O2SAT 98
--- NOTE | 2022-12-11 22:53 | PC.NURSE ---
Patient refused hydrocodone. I attempted to return to [facility]. Malfunction with pyxis and drawer did not open. Placed in Pharmacy return bin in locked cabinet and pharmacy was called and made aware.
[2022-12-11 23:26] VITALS: BP 153/90; PULSE 90; RESP 16; O2SAT 97
--- NOTE | 2022-12-12 07:26 | DCPLANNER ---
Addendum entered by Darcy Ordonez 12/15/22 10:49: Patient did attend appointment Addendum entered by Darcy Ordonez 12/13/22 08:25: Patient has a follow up appointment scheduled for Tuesday, December 13, 2022 at 3:[address] Galicia at ortho. Original Note: application release manager had message to schedule a follow up appointment for patient with ortho. application release manager sent patients information to the front office staff at ortho. Patients information will be printed and reviewed. Clinic will call patient with appointment information.
== END 2022-12-11 23:28 | disposition home or self-care (01) ==
PROVIDERS: Emergency Provider Internal Medicine; PCP Family Medicine
DX: S82.092A Other fracture of left patella, initial encounter for closed fracture (principal); M25.462 Effusion, left knee; I10 Essential (primary) hypertension; Z87.891 Personal history of nicotine dependence; W18.09XA Striking against other object with subsequent fall, initial encounter
CPT/HCPCS: 12345; 29530; 73562; 99283

== ENCOUNTER 2022-12-13 16:53 | Outpatient (CLI) | payer MEDICARE, MEDICAID, SELFPAY | END 2022-12-13 16:54 | disposition home or self-care (01) | LOC: SPT 12-14 09:54 | PROVIDERS: PCP Family Medicine; Visit Provider Specialist | DX: Z46.89 Encounter for fitting and adjustment of other specified devices (principal); S82.045A Nondisplaced comminuted fracture of left patella, initial encounter for closed fracture; W18.09XA Striking against other object with subsequent fall, initial encounter | CPT/HCPCS: 27520; 97760; 99203; L1832 ==

== ENCOUNTER 2022-12-29 18:58 | Emergency (ER) | payer MEDICARE, MEDICAID, SELFPAY ==
[2022-12-29 19:06] VITALS: BP 130/73; PULSE 105; RESP 16; TEMP 36.4; O2SAT 97; BMI 28.3
--- NOTE | 2022-12-29 19:56 | XRR_ITS ---
PROCEDURE INFORMATION: Exam: XR Thoracic Spine Exam date and time: 12/29/2022 8:20 PM Age: 62 years old Clinical indication: Pain in thoracic spine; Prior surgery; Surgery date: 6+ months; Surgery type: Gb; Patient HX: C/O persistent back pain post fall two weeks ago. ; Additional info: Fall, 2 wks, cont pain TECHNIQUE: Imaging protocol: Radiologic exam of the thoracic spine. Views: 3 views. COMPARISON: CR XR chest 2V* [id number] 04/16/2020 3:08 PM FINDINGS: Bones/joints: There are 12 rib-bearing vertebral bodies. Vertebral body heights are maintained. Normal vertebral alignment. Mild multilevel degenerative disc disease with endplate osteophyte formation. Mild left convex curvature of the lumbar spine with more prominent endplate osteophyte formation. Soft tissues: Unremarkable. Heart/Mediastinum: Moderate hiatal hernia. Organs: Post cholecystectomy surgical clips in the right upper abdominal quadrant. XR/XR thoracic spine 3V* [id number] IMPRESSION: No acute osseous abnormality of the thoracic spine.
--- NOTE | 2022-12-29 19:56 | XRR_ITS ---
PROCEDURE INFORMATION: Exam: XR Lumbosacral Spine Exam date and time: 12/29/2022 8:26 PM Age: 62 years old Clinical indication: Low back pain; Prior surgery; Surgery date: 6+ months; Surgery type: Hysterectomy; Patient HX: C/O persistent back pain post fall two weeks ago. ; Additional info: Fall, 2wks, cont pain TECHNIQUE: Imaging protocol: Radiologic exam of the lumbosacral spine. Views: 2 or 3 views. COMPARISON: CT abdomen pelvis w con* [id number] 10/25/2017 6:47 AM FINDINGS: Bones/joints: Five lumbar-type vertebral bodies with transitional lumbosacral anatomy, sacralization of L5. Left convex curvature of the lumbar spine. Normal alignment. Limited assessment of L4 through S1 secondary to soft tissue superimposition artifact on lateral view. Mild approximately 25% anterior height loss of the T12 vertebral body secondary to superior endplate compression fracture deformity. No significant retropulsion. [id number] multilevel degenerative disc disease. Soft tissues: See Bones/joints finding. XR/XR lumbar spine 2-3V* [id number] IMPRESSION: Mild approximately 25% anterior height loss of the T12 vertebral body secondary to superior endplate compression fracture deformity, of indeterminate age but new compared to 10/25/2017 CT abdomen and pelvis. No significant retropulsion. Correlate with point tenderness on exam.
[2022-12-29 20:30] LABS: Add Urine Microscopic? YES; Bilirubin Urine Neg (Negative); Blood Urine Neg (Negative); Glucose Urine UA Norm (Normal); Ketones Urine Negative (Negative); Leukocyte Esterase Urine 2+ (Negative); Nitrate Urine Negative (Negative); Protein Urine Trace (Negative); Specific Gravity, Urine 1.025 (1.005-1.030); Urine Appearance Clear (CLEAR); Urine Color Yellow (Yellow); Urobilinogen Urine Norm (Negative); pH Urine 5 (5-7)
[2022-12-29 20:31] LABS: RBC Urine 0-4 /hpf (0-2)
[2022-12-29 20:32] LABS: Add Urine Culture? No; Squamous Epithelial Cell Urine 0-4 /hpf (0-5); WBC Urine 0-4 /hpf (0-5)
--- NOTE | 2022-12-29 22:17 | W.ED.BACK ---
HPI - Back Pain/Injury General: Chief Complaint: Back Pain/Injury Stated Complaint: Back Pain Time Seen by Provider: 12/29/22 19:19 Source: patient Mode of arrival: ambulatory Limitations: no limitations History of Present Illness: Patient presents emergency department today for evaluation treatment of low thoracic and lumbar back pain. Patient reports that 2 weeks ago she had an injury where she broke her left kneecap. Patient states she was put into a knee immobilizer and, while trying to get home that day, accidentally fell backwards onto her carpeted floor and hit her back. She has been trying Tylenol and topical medications without resolution of pain during the last 2 weeks so after discussing with primary care, recommended she come in for evaluation. Patient states pain is improved but still present. She denies any tingling or numbness into the lower extremities and has been able to void and have bowel movements without difficulty. Review of Systems General: Reports: 10 or more systems reviewed and unremarkable except in HPI and below PFSH ED PFSH: Medical History Allergic rhinitis due to allergen Attention-deficit hyperactivity disorder, predominantly inattentive type Enrolled in chronic care management Essential hypertension GERD (gastroesophageal reflux disease) Hypothyroid Psychiatric care Thrush, oral URI with cough and congestion Surgical History H/O: hysterectomy History of cholecystectomy History of nasal surgery Family History Other Hypertension Psychiatric illness Social History Smoking and tobacco status: former smoker Alcohol intake: never Substance/Drug Use: never Physical Exam Const: COMMON NORMALS: no acute distress, patient oriented x3 and alert HENMT: COMMON NORMALS: normocephalic, atraumatic and hearing grossly normal bilaterally HEAD & SCALP: normocephalic and atraumatic Eye: COMMON NORMALS: Equal, round and reactive pupils present, EOMs intact bilaterally and conjunctivae normal CONJUNCTIVA: Yes conjunctivae normal PUPIL: Yes Equal, round and reactive pupils present Neck/C-Spine: COMMON NORMALS: full ROM and no JVD Lymph: LYMPHATIC: no lymphadenopathy noted Resp: COMMON NORMALS: normal respiratory effort, No retractions and No use of accessory muscles Cardio: COMMON NORMALS: no JVD and regular rate RATE: regular rate Extremity: NARRATIVE EXTREMITY EXAM: Patient with full mobility of her right lower extremity. Left lower extremity is still in a knee immobilizer and is limited on movement. Patient is weightbearing and ambulatory. She has point specific tenderness along the left thoracic lumbar region on palpation. Neuro: COMMON NORMALS: patient oriented x3 SENSORIUM/ORIENTATION: Yes alert Psych: COMMON NORMALS: mental status grossly normal, Normal thought process present, cooperative and normal affect THOUGHT PROCESS: Normal thought process present Skin: COMMON NORMALS: no rashes or lesions noted and turgor normal GENERAL SKIN EXAM: no rashes or lesions noted and turgor normal Course Vital Signs: Vital signs: Vital Signs Temperature 97.5 F L 12/29/22 19:06 Pulse Rate 105 H 12/29/22 19:06 Respiratory Rate 16 12/29/22 19:06 Blood Pressure 130/73 12/29/22 19:06 Pulse Oximetry 97 12/29/22 19:06 Oxygen Delivery Me thod Room Air 12/29/22 19:06 MDM - Back Pain/Injury Medical Decision Making Patient's lumbar x-ray is negative. Thoracic x-ray was addended to indicate a T12 anterior height loss of approximately 25% of indeterminate age. I went back and reexamined the patient specifically palpating in the T12 region which patient indicated was not tender. Patient's area of tenderness was more inferior and lateral on reexamination. I did discuss the case with Dr. Ferrell but, patient had already indicated that she does not want and would not wear a turtle shell brace. Discussed with her that typical treatment would place her in that brace and have follow-up with spine. She was willing to have the follow-up and I did initiate a referral for her to have this follow-up. Patient has pain medication at home that she is not currently using which was given to her for her knee injury. Indicated she could start using her pain medication to help with her back pain. Patient asked about a steroid shot here in the emergency department but, when the nurse came to administer, patient then declined. Patient was given return precautions for any change in ability to have bowel movements or urinate or should she have any tingling or numbness into the lower extremities. Patient verbalized understanding and agreement to treatment plan. Differential Diagnosis Likely lumbar radiculopathy, strain of lumbar region and thoracic back pain Labs Radiology Impressions Lumbar Spine X-Ray 12/29/22 19:56 IMPRESSION: Mild approximately 25% anterior height loss of the T12 vertebral body secondary to superior endplate compression fracture deformity, of indeterminate age but new compared to 10/25/2017 CT abdomen and pelvis. No significant retropulsion. Correlate with point tenderness on exam. Thoracic Spine X-Ray 12/29/22 19:56 IMPRESSION: No acute osseous abnormality of the thoracic spine. ADDENDUM: 12/29/221 T12 fracture appreciated on concurrent lumbosacral spine radiographs: Mild approximately 25% anterior height loss of the T12 vertebral body secondary to superior endplate compression fracture deformity, of indeterminate age. No significant retropulsion. Correlate with point tenderness on exam. Laboratory Results Urine Color Yellow (Yellow) 12/29/22 19:28 Urine Appearance Clear (CLEAR) 12/29/22 19:28 Urine pH 5 (5-7) 12/29/22 19:28 Ur Specific [place] 1.025 (1.005-1.030) 12/29/22 19:28 Urine Protein Trace (Negative) 12/29/22 19:28 Urine Glucose (UA) Norm (Normal) 12/29/22 19:28 Urine Ketones Negative (Negative) 12/29/22 19:28 Urine Blood Neg (Negative) 12/29/22 19:28 Urine Nitrate Negative (Negative) 12/29/22 19:28 Urine Bilirubin Neg (Negative) 12/29/22 19:28 Urine Urobilinogen Norm mg/dL (Negative) 12/29/22 19:28 Ur Leukocyte Esterase 2+ (Negative) H 12/29/22 19:28 Urine RBC 0-4 /hpf (0-2) H 12/29/22 19:28 Urine WBC 0-4 /hpf (0-5) H 12/29/22 19:28 Ur Squamous Epith Cells 0-4 /hpf (0-5) H 12/29/22 19:28 Calcium Oxalate Crystal 10-15 /hpf H 12/29/22 19:28 Amorphous Sediment Not Reportable 12/29/22 19:28 Urine Bacteria None /hpf (NONE) 12/29/22 19:28 Discharge Plan Discharge Patient Disposition: Home Clinical Impression: Back pain due to injury Condition: Stable Prescriptions: No Action multivitamin Tablet 1 tab PO QAM Dupixent Syringe 300 mg/2 mL syringe 300 mg SUBCUT .every 2 weeks clotrimazole 1 % cream 1 applic topical BID 14 Days Qty: 30 0RF benzonatate 200 mg capsule 200 mg PO BID PRN (Reason: cough) Qty: 20 0RF (DME) [place] [facility] See Rx Instructions .Route .MEDSUPPLY Qty: 1 0RF Rx Instructions: As directed (DME) Ricky See Rx Instructions .Route .MEDSUPPLY Qty: 1 0RF Rx Instructions: As directed atomoxetine [Strattera] 100 mg capsule 100 mg PO QAM Qty: 30 11RF sertraline [Zoloft] 50 mg tablet 50 mg PO DAILY Qty: 30 11RF clonazepam [Klonopin] 0.5 mg tablet 0.25 mg PO BID Qty: 60 5RF zolpidem [Ambien] 10 mg tablet 10 mg PO BEDTIME Qty: 30 5RF albuterol sulfate [Ventolin HFA] 90 mcg/actuation HFA aerosol inhaler 2 puff INHALATION Q6H PRN (Reason: shortness of breath or wheezing) Qty: 18 2RF Symbicort 160-4.5 mcg/actuation HFA aerosol inhaler See Rx Instructions .ROUTE .COMPLEX Qty: 10.2 0RF Dose Instruction: INHALE 2 PUFFS BY MOUTH EVERY 12 HOURS Rx Instructions: INHALE 2 PUFFS BY MOUTH EVERY 12 HOURS levothyroxine 100 mcg tablet See Rx Instructions .ROUTE .COMPLEX Qty: 90 0RF Dose Instruction: TAKE 1 TABLET BY MOUTH EVERY DAY Rx Instructions: TAKE 1 TABLET BY MOUTH EVERY DAY diphenhydramine HCl [Banophen] 25 mg capsule See Rx Instructions .ROUTE .COMPLEX Qty: 30 5RF Dose Instruction: TAKE 1 CAPSULE BY MOUTH AT BEDTIME NEEDED FOR COUGH Rx Instructions: TAKE 1 CAPSULE BY MOUTH AT BEDTIME NEEDED FOR COUGH (DME) nebulizer mouthpiece and tubing See Rx Instructions .Route .MEDSUPPLY Qty: 1 0RF Rx Instructions: As directed ezetimibe 10 mg tablet See Rx Instructions .ROUTE .COMPLEX Qty: 90 1RF Dose Instruction: TAKE 1 TABLET BY MOUTH EVERY DAY Rx Instructions: TAKE 1 TABLET BY MOUTH EVERY DAY albuterol sulfate 2.5 mg /3 mL (0.083 %) solution for nebulization See Rx Instructions .ROUTE .COMPLEX Qty: 60 11RF Dose Instruction: USE 1 VIAL IN NEBULIZER 4 TIMES DAILY - as needed Rx Instructions: USE 1 VIAL IN NEBULIZER 4 TIMES DAILY - as needed gabapentin 300 mg capsule See Rx Instructions .ROUTE .COMPLEX Qty: 90 1RF Dose Instruction: TAKE 1 CAPSULE BY MOUTH EVERY DAY Rx Instructions: TAKE 1 CAPSULE BY MOUTH EVERY DAY fluticasone propionate 50 mcg/actuation spray,suspension See Rx Instructions .ROUTE .COMPLEX Qty: 48 0RF Dose Instruction: SPRAY 2 SPRAYS IN EACH NOSTRIL TWICE DAILY FOR ALLERGY SYMPTOMS Rx Instructions: SPRAY 2 SPRAYS IN EACH NOSTRIL TWICE DAILY FOR ALLERGY SYMPTOMS lisinopril 10 mg tablet See Rx Instructions .ROUTE .COMPLEX Qty: 90 1RF Dose Instruction: TAKE 1 TABLET BY MOUTH EVERY DAY FOR 90 DAYS Rx Instructions: TAKE 1 TABLET BY MOUTH EVERY DAY FOR 90 DAYS theophylline 300 mg tablet extended release 12 hr 300 mg PO Q12H Qty: 60 2RF dexlansoprazole 60 mg capsule,biphase delayed releas See Rx Instructions .ROUTE .COMPLEX Qty: 90 0RF Dose Instruction: TAKE 1 CAPSULE BY MOUTH EVERY DAY Rx Instructions: TAKE 1 CAPSULE BY MOUTH EVERY DAY hydrocodone-acetaminophen 5-325 mg tablet 1 tab PO Q8H PRN (Reason: pain) Qty: 12 0RF acetaminophen-codeine 300-30 mg tablet 1 tab PO Q4H PRN (Reason: pain) Qty: 20 0RF Hold Instructions: Resume on 12/15/22. Do not take while taking [place] Discharge Orders: Discharge ED (Routine); Ordered 12/29/22 Ordered By: Yana Gonzalez Referrals: Lily Medina DO [Primary Care Provider] - Discharge Diet: Usual diet Discharge Activity: Limit activity as instructed Patient Instructions: Acute Low Back Pain (ED) Activity Restrictions/Additional Instructions: X-ray today showed no acute concerns with your lower back low there is a finding of the 25% anterior height loss on your T12 vertebral body. Radiology was not able to determine whether this was a recent injury but recommended seeing if the area of discomfort correlates with tenderness on your exam. When I press in this area, you indicated your pain was further down and to the left. As we discussed, injuries to the vertebral bodies usually warrant wearing a turtle shell brace but, as you request to not be placed in 1 today, I am referring you onto the spine doctor for follow-up to have a second opinion and reevaluation from your fall and to reexamine your imaging. Be sure you are taking it easy. Continue to avoid any excessive activity or heavy lifting. You may wish to start taking the pain medication you were provided for your knee fracture to help with your back pain. Coding Level of Care Code ED Mattress Stuffer for Artie Li
--- NOTE | 2023-01-01 08:38 | DCPLANNER ---
Addendum entered by Darcy Ordonez 01/02/23 14:21: talent manager received the following message from the ortho clinic regarding follow up appointment: spoke to patient - she said her back is doing better and she doesnt wish to schedule a follow up with us at this time. Original Note: talent manager had message to schedule a follow up appointment for patient for ortho. talent manager sent patients information to the front office staff at ortho. Patients information will be printed and reviewed. Clinic will call patient with appointment information.
== END 2022-12-29 23:55 | disposition home or self-care (01) ==
PROVIDERS: Emergency Provider Physician Assistant; PCP Family Medicine
DX: S29.9XXA Unspecified injury of thorax, initial encounter (principal); W18.30XA Fall on same level, unspecified, initial encounter
CPT/HCPCS: 72072; 72100; 81001; 99284

== ENCOUNTER → 2023-01-03 08:29 | Outpatient (BNVA) | payer MEDICARE, MEDICAID, SELFPAY | PROVIDERS: PCP Family Medicine; Visit Provider Specialist | DX: S82.035D Nondisplaced transverse fracture of left patella, subsequent encounter for closed fracture with routine healing; W18.09XD Striking against other object with subsequent fall, subsequent encounter; Y93.E3 Activity, vacuuming; Z46.89 Encounter for fitting and adjustment of other specified devices; X58.XXXD Exposure to other specified factors, subsequent encounter | CPT/HCPCS: 73562; 97760; 99024; L1812 ==

== ENCOUNTER 2023-01-03 15:01 | Outpatient (CLI) | payer MEDICARE, MEDICAID, SELFPAY | END 2023-01-03 15:02 | disposition home or self-care (01) | PROVIDERS: PCP Family Medicine; Visit Provider Specialist | DX: Z46.89 Encounter for fitting and adjustment of other specified devices (principal); S82.035D Nondisplaced transverse fracture of left patella, subsequent encounter for closed fracture with routine healing; X58.XXXD Exposure to other specified factors, subsequent encounter | CPT/HCPCS: 97760; 99024; L1812 ==

== ENCOUNTER 2023-01-24 14:09 | Outpatient (CLI) | payer MEDICARE, MEDICAID, SELFPAY ==
--- NOTE | 2023-01-24 14:30 | XR_ITS ---
WS: [id number] SCREENING DEXA SCAN [facility] CLINICAL INFORMATION: post menopausal COMPARISON: 2019 FINDINGS: The L1-L4 bone mineral density measures 0.896. This corresponds to a T score score of -2.5 and Z scor e of -1.4. Left femoral neck bone mineral density measures 0.679 g/cm2. This corresponds to a T score of -2.6 an d Z score of -1.7. Right femoral neck bone mineral density measures 0.667 g/cm2. This corresponds to a T score -2.7of an d Z score of -1.8. Mean femoral neck bone mineral density measures 0.673 g/cm2. This corresponds to a T score of -2.7 an d Z score of -1.8. IMPRESSION: Osteoporosis lower end of the range. Patient's FRAX calculated 10 year probability for major osteopor otic fracture is 31.1% and osteoporotic hip fracture is 7.7%. Mineralization lumbar spine decreased -5.1% Mineralization femoral necks decreased -3.3%
== END 2023-01-24 14:10 | disposition home or self-care (01) ==
LOC: RAD 14:11
PROVIDERS: PCP Family Medicine; Visit Provider Family Medicine
DX: M81.0 Age-related osteoporosis without current pathological fracture (principal); Z78.0 Asymptomatic menopausal state
CPT/HCPCS: 77080

== ENCOUNTER → 2023-01-25 07:44 | Outpatient (BNVA) | payer MEDICARE, MEDICAID, SELFPAY | PROVIDERS: PCP Family Medicine; Referring Provider Family Medicine; Visit Provider Orthopaedic Surgery | DX: S22.080A Wedge compression fracture of T11-T12 vertebra, initial encounter for closed fracture (principal); W19.XXXA Unspecified fall, initial encounter | CPT/HCPCS: 72070; 99213 ==

== ENCOUNTER → 2023-01-31 11:15 | Outpatient (BNVA) | payer MEDICARE, MEDICAID, SELFPAY | PROVIDERS: PCP Family Medicine; Visit Provider Specialist | DX: S82.045A Nondisplaced comminuted fracture of left patella, initial encounter for closed fracture; X58.XXXA Exposure to other specified factors, initial encounter | CPT/HCPCS: 73562; 99024 ==

== ENCOUNTER → 2023-03-08 07:45 | Outpatient (BNVA) | payer MEDICARE, MEDICAID, SELFPAY | PROVIDERS: PCP Family Medicine; Visit Provider Orthopaedic Surgery | DX: S22.080A Wedge compression fracture of T11-T12 vertebra, initial encounter for closed fracture (principal); T14.8XXA Other injury of unspecified body region, initial encounter; X58.XXXA Exposure to other specified factors, initial encounter | CPT/HCPCS: 72070; 99213 ==

== ENCOUNTER → 2023-04-20 11:36 | Outpatient (BNVA) | payer MEDICARE, MEDICAID, SELFPAY | PROVIDERS: PCP Family Medicine; Visit Provider Family Medicine | DX: E03.9 Hypothyroidism, unspecified (principal) | CPT/HCPCS: 84443 ==

== ENCOUNTER 2023-05-16 13:38 | Outpatient (CLI) | payer MEDICARE, MEDICAID, SELFPAY ==
--- NOTE | 2023-05-16 13:48 | MM_ITS ---
WS: [id number] BILATERAL 3D TOMOSYNTHESIS DIGITAL SCREENING MAMMOGRAPHY WITH CAD CLINICAL INFORMATION: SCREENING HISTORY: Screening mammogram. No current complaints. COMPARISON: 2021 TECHNIQUE: Bilateral CC and MLO views. FINDINGS: Scattered fibroglandular densities bilaterally. No suspicious focal mass, asymmetry, calcifications, or architectural distortion. No evidence of malignancy. IMPRESSION: MM/[place] [id number] BI-RADS: 1-Negative FOLLOW UP: 1 Year Follow-up Recommend return to annual screening mammography.
== END 2023-05-16 13:39 | disposition home or self-care (01) ==
LOC: RAD 13:38
PROVIDERS: PCP Family Medicine; Visit Provider Family Medicine
DX: Z12.31 Encounter for screening mammogram for malignant neoplasm of breast (principal)
CPT/HCPCS: 77063; 77067

== ENCOUNTER → 2023-10-23 11:38 | Outpatient (BNVA) | payer MEDICARE, MEDICAID, SELFPAY | PROVIDERS: PCP Family Medicine; Visit Provider Family Medicine | DX: I10 Essential (primary) hypertension (principal); Z13.6 Encounter for screening for cardiovascular disorders; E03.9 Hypothyroidism, unspecified; Z79.899 Other long term (current) drug therapy | CPT/HCPCS: 80053; 80061; 82043; 84443; 85025 ==

== ENCOUNTER → 2024-01-28 13:50 | Outpatient (BNVA) | payer MEDICARE, MEDICAID, SELFPAY | PROVIDERS: PCP Family Medicine | DX: I10 Essential (primary) hypertension (principal); E03.9 Hypothyroidism, unspecified | CPT/HCPCS: 80053; 80061; 84439; 84443; 85025 ==

== ENCOUNTER → 2024-05-15 13:54 | Outpatient (BNVA) | payer MEDICARE, SELFPAY | DX: I10 Essential (primary) hypertension (principal); E03.9 Hypothyroidism, unspecified | CPT/HCPCS: 80053; 84439; 84443; 85025 ==

== ENCOUNTER 2024-06-02 10:38 | Outpatient (CLI) | payer MEDICARE, MEDICAID, SELFPAY ==
--- NOTE | 2024-06-02 10:44 | MM_ITS ---
WS: [id number] SCREENING DIGITAL TOMOSYNTHESIS MAMMOGRAM WITH CAD HISTORY: SCREENING COMPARISON: 05/16/2023, 05/03/2022 Bilateral CC and MLO with tomosynthesis views submitted. Synthetic mammography reviewed. Computer aid ed detection analyzed. Breast composition: The breasts are almost entirely fatty. No suspicious masses, microcalcifications or architectural distortion. MM/MM scr BI tomosynthesis [id number] IMPRESSION: BI-RADS: 1 - Negative. FOLLOW UP: 1 Year Follow-up
== END 2024-06-02 10:39 | disposition home or self-care (01) ==
PROVIDERS: Visit Provider Pediatrics
DX: Z12.31 Encounter for screening mammogram for malignant neoplasm of breast (principal); R92.313 Mammographic fatty tissue density, bilateral breasts
CPT/HCPCS: 77063; 77067

== ENCOUNTER → 2025-01-08 11:25 | Outpatient (BNVA) | payer MEDICARE, OTHER, SELFPAY | PROVIDERS: PCP Family Medicine; Visit Provider Family Medicine | DX: E03.9 Hypothyroidism, unspecified (principal); I10 Essential (primary) hypertension | CPT/HCPCS: 80061; 84439; 84443 ==